=== PATIENT | male | born 1955 | race Caucasian/White ===

== ENCOUNTER 2022-05-10 21:23 | Emergency (ER) | payer BC, MEDICARE ==
[~2022-05-10] VITALS: Ht 182.9 cm; Wt 99.8 kg
[2022-05-10 23:03] LABS: BASOPHILS ABSOLUTE AUTO 0.04 K/mm3 (0.00-0.23); BASOPHILS PERCENT AUTO 1 % (0-2); EOSINOPHILS ABSOLUTE AUTO 0.16 K/mm3 (0.00-0.68); EOSINOPHILS PERCENT AUTO 2 % (0-6); Hematocrit 39.6 % (37.0-53.0); Hemoglobin 13.2 g/dL (13.5-17.5); IMMATURE GRAN ABSOLUTE AUTO 0.07 K/mm3 (0.00-0.10); IMMATURE GRAN PERCENT AUTO 1 % (0-1); LYMPHOCYTES ABSOLUTE AUTO 0.86 K/mm3 (0.84-5.20); LYMPHOCYTES PERCENT AUTO 10 % (21-46); MONOCYTES ABSOLUTE AUTO 0.74 K/mm3 (0.16-1.47); MONOCYTES PERCENT AUTO 9 % (4-13); Mean Corpuscular HGB 30.3 pg (26.0-34.0); Mean Corpuscular HGB Conc 33.3 g/dL (31.5-36.5); Mean Corpuscular Volume 91 fL (80-100); Mean Platelet Volume 10.6 fL (9.1-12.4); NEUTROPHILS ABSOLUTE AUTO 6.88 K/mm3 (1.96-9.15); NEUTROPHILS PERCENT AUTO 79 % (41-73); Platelet Count 126 K/mm3 (150-400); RDW Coefficient Variation 13.7 % (11.7-14.2); RDW Standard Deviation 45.9 fL (35.1-46.3); Red Blood Cell Count 4.36 M/mm3 (4.30-5.90); White Blood Cell Count 8.75 K/mm3 (4.00-11.30)
[2022-05-10 23:20] LABS: Albumin, Blood 3.9 g/dL (3.4-5.0); Albumin/Globulin Ratio 1.2 (0.8-1.8); Bilirubin, Total 0.6 mg/dL (0.1-1.0); Bun/Creatinine Ratio 19.2 (12.0-20.0); Calcium, Blood 8.7 mg/dL (8.5-10.1); Creatinine, Blood 1.2 mg/dL (0.60-1.20); Globulin, Blood 3.3 g/dL (2.2-4.0); Potassium, Blood 4.5 mmol/L (3.5-5.5); Total Protein, Blood 7.2 g/dL (6.4-8.2)
[2022-05-11] MEDS ORDERED: LISINOPRIL TAB 20M (06:22)
[2022-05-11] MEDS ORDERED: TAMSULOSIN HCL0.4 M1 PO (06:22)
[2022-05-11] MEDS ORDERED: AMIODARONE TAB 200 (06:22)
[2022-05-11] MEDS ORDERED: [UNRECOGNIZED DRUG - CODE] PO (06:22)
[2022-05-11] MEDS ORDERED: LIPITOR80 MG PO (06:22)
[2022-05-11] MEDS ORDERED: CARVEDILOL3.125 MG PO (06:23)
[2022-05-11] MEDS ORDERED: JANTOVEN2 MG PO (06:23)
[2022-05-11] MEDS ORDERED: JANTOVEN5 M2 PO (06:24)
== END 2022-05-11 06:26 | disposition home or self-care (01) ==
LOC: EDBD 21:23 → ER 21:23
PROVIDERS: Physician Assistant
DX: R55 Syncope and collapse (principal); Z95.0 Presence of cardiac pacemaker; Z79.01 Long term (current) use of anticoagulants
CPT/HCPCS: 71045; 80053; 84484; 85025; 93005; 93010; 99284-25